=== PATIENT | female | born 1945 | race Caucasian/White ===

== ENCOUNTER 2018-04-19 06:00 | Day surgery (SDC) | payer OTHER ==
[~2018-04-19 06:00] MED LIST: CRESTOR5 MG PO; VENTOLIN HFA18 GM IH; VITAMIN D34000 UNIT PO
== END 2018-04-19 11:15 | disposition home or self-care (01) ==
LOC: CIR.AMB 06:00
DX: M75.121 Complete rotator cuff tear or rupture of right shoulder, not specified as traumatic (principal); M13.811 Other specified arthritis, right shoulder